=== PATIENT | male | born 1950 | race Caucasian/White ===

== ENCOUNTER → 2018-11-16 | Outpatient (CLI) | payer OTHER, MEDICARE | LOC: BHFA 11:30 | PROVIDERS: ATTEND Internal Medicine Cardiovascular Disease | DX: R00.2 Palpitations (principal) ==

== ENCOUNTER → 2018-12-29 | Outpatient (CLI) | payer OTHER, MEDICARE | LOC: BHFA 11:30 | PROVIDERS: ATTEND Internal Medicine Interventional Cardiology | DX: R00.2 Palpitations (principal); R06.09 Other forms of dyspnea; I49.1 Atrial premature depolarization ==

== ENCOUNTER → 2019-01-19 | Outpatient (CLI) | payer OTHER, MEDICARE | LOC: FIMAGING 09:40 ==

== ENCOUNTER → 2019-01-24 | Outpatient (CLI) | payer OTHER, MEDICARE | LOC: FIMAGING 12:42 ==